=== PATIENT | male | born 1945 | race Caucasian/White ===

== ENCOUNTER 2017-09-19 00:07 | Day surgery (SDC) | payer MEDICARE, OTHER ==
[~2017-09-19 00:07] MED LIST: ACET325 PO; ASCO1ER; ASCO500 PO; Augmentin 875-1 EACH PO; Bactrim Ds Tab1 EACH PO; CALC1.25T PO; CALCIUM; Cefdinir300 MG PO; DIPATR PO; DRON5; Econazole Nitra15 GM TP; FISH1000; FISH1000 PO; GLUCHON; Hydrocodone-Ap1 EA23 PO; METR500 PO; ONDA4 PO; ONDA8 PO; OXYC5; PERIDEX15 ML MM; SILD50TA PO; Selenium100 MCG PO; TIOT18; TOCO400; TOCO400 PO; VALACYCLOVIR1000 MG PO; VITAMIN D310000 UNI1 PO; WARF4; WARF5 PO; XARELTO20 MG PO; ZINC15 PO; ZINC50TA2; [UNRECOGNIZED DRUG - OTHER] PO
== END 2017-09-19 10:18 | disposition home or self-care (01) ==
LOC: WOUND 00:07
DX: Z48.00 Encounter for change or removal of nonsurgical wound dressing (principal); T81.4XXS Infection following a procedure, sequela; C20 Malignant neoplasm of rectum; C78.01 Secondary malignant neoplasm of right lung; Z86.14 Personal history of Methicillin resistant Staphylococcus aureus infection
CPT/HCPCS: 36415; 80053; 85025; G0463

== ENCOUNTER 2017-09-26 20:12 | Inpatient (IN) | payer MEDICARE, OTHER ==
[~2017-09-26] VITALS: Ht 177.8 cm; Wt 74.0 kg
[2017-09-26 21:15] LABS: BASOPHILS ABSOLUTE AUTO 0.01 K/mm3 (0.00-0.23); BASOPHILS PERCENT AUTO 0 % (0-2); EOSINOPHILS ABSOLUTE AUTO 0.02 K/mm3 (0.00-0.68); EOSINOPHILS PERCENT AUTO 0 % (0-6); Hematocrit 33.4 % (37.0-53.0); Hemoglobin 10.9 g/dL (13.5-17.5); IMMATURE GRAN ABSOLUTE AUTO 0.03 K/mm3 (0.00-0.10); IMMATURE GRAN PERCENT AUTO 0 % (0-1); LYMPHOCYTES ABSOLUTE AUTO 1.03 K/mm3 (0.84-5.20); LYMPHOCYTES PERCENT AUTO 9 % (21-46); MONOCYTES ABSOLUTE AUTO 1.07 K/mm3 (0.16-1.47); MONOCYTES PERCENT AUTO 9 % (4-13); Mean Corpuscular HGB 31.4 pg (26.0-34.0); Mean Corpuscular HGB Conc 32.6 g/dL (31.5-36.5); Mean Corpuscular Volume 96 fL (80-100); Mean Platelet Volume 9.5 fL (9.1-12.4); NEUTROPHILS PERCENT AUTO 82 % (41-73); Platelet Count 249 K/mm3 (150-400); RDW Coefficient Variation 14.4 % (11.7-14.2); RDW Standard Deviation 50.4 fL (35.1-46.3); Red Blood Cell Count 3.47 M/mm3 (4.30-5.90); White Blood Cell Count 12.16 K/mm3 (4.00-11.30)
[2017-09-26 21:27] LABS: Anion Gap 13 mmol/L (6-16); Blood Urea Nitrogen 30 mg/dL (8-24); Bun/Creatinine Ratio 40.4 (12.0-20.0); CO2, Blood 19 mmol/L (21-32); Calcium, Blood 9.2 mg/dL (8.5-10.1); Chloride, Blood 104 mmol/L (98-108); Creatinine, Blood 0.74 mg/dL (0.60-1.20); Glomerular Filtration Rate >60 (60-); Glucose, Blood 149 mg/dL (70-99); Potassium, Blood 4.3 mmol/L (3.5-5.5); Sodium, Blood 136 mmol/L (136-145)
[2017-09-26] MEDS ORDERED: OXYC5 (21:38)
[2017-09-26] MEDS ORDERED: FENTANYL1 EAC1 TD (21:39)
[2017-09-27 05:03] LABS: BASOPHILS ABSOLUTE AUTO 0.01 K/mm3 (0.00-0.23); BASOPHILS PERCENT AUTO 0 % (0-2); EOSINOPHILS ABSOLUTE AUTO 0.01 K/mm3 (0.00-0.68); EOSINOPHILS PERCENT AUTO 0 % (0-6); Hematocrit 32.8 % (37.0-53.0); Hemoglobin 10.7 g/dL (13.5-17.5); IMMATURE GRAN ABSOLUTE AUTO 0.06 K/mm3 (0.00-0.10); IMMATURE GRAN PERCENT AUTO 0 % (0-1); LYMPHOCYTES ABSOLUTE AUTO 0.37 K/mm3 (0.84-5.20); LYMPHOCYTES PERCENT AUTO 2 % (21-46); MONOCYTES ABSOLUTE AUTO 0.17 K/mm3 (0.16-1.47); MONOCYTES PERCENT AUTO 1 % (4-13); Mean Corpuscular HGB 32.2 pg (26.0-34.0); Mean Corpuscular HGB Conc 32.6 g/dL (31.5-36.5); Mean Platelet Volume 9.6 fL (9.1-12.4); NEUTROPHILS ABSOLUTE AUTO 20.43 K/mm3 (1.96-9.15); NEUTROPHILS PERCENT AUTO 97 % (41-73); Platelet Count 216 K/mm3 (150-400); RDW Coefficient Variation 14.6 % (11.7-14.2); RDW Standard Deviation 53.2 fL (35.1-46.3); Red Blood Cell Count 3.32 M/mm3 (4.30-5.90); White Blood Cell Count 21.05 K/mm3 (4.00-11.30)
[2017-09-27 05:12] LABS: Mean Corpuscular Volume 99 fL (80-100)
[2017-09-27 05:40] LABS: BAND PERCENT MAN 9 % (0-8); BASOPHILS PERCENT MAN 0 % (0-2); EOSINOPHILS PERCENT MAN 0 % (0-6); LYMPHOCYTES ABSOLUTE MAN 0.42 K/mm3 (0.84-5.20); LYMPHOCYTES PERCENT MAN 2 % (21-46); MONOCYTES PERCENT MAN 0 % (4-13); NEUTROPHILS ABSOLUTE MAN 20.62 K/mm3 (1.96-9.15); SEG NEUTROPHILS PERCENT MAN 89 % (41-73); TOTAL CELLS COUNTED 100
[2017-09-27 06:36] LABS: Albumin, Blood 3.3 g/dL (3.4-5.0); Albumin/Globulin Ratio 0.9 (0.8-1.8); Bilirubin, Total 0.8 mg/dL (0.1-1.0); Bun/Creatinine Ratio 27.4 (12.0-20.0); Calcium, Blood 8.7 mg/dL (8.5-10.1); Creatinine, Blood 1.35 mg/dL (0.60-1.20); Globulin, Blood 3.5 g/dL (2.2-4.0); Potassium, Blood 4.7 mmol/L (3.5-5.5); Total Protein, Blood 6.8 g/dL (6.4-8.2)
[2017-09-27 07:19] LABS: International Normalized Ratio 1.69; Prothrombin Time Results 17.9 Sec (9.7-11.5)
== END 2017-10-02 15:14 | DRG 698 ==
LOC: ER 20:12 → MEDS 09-27 03:02 → ICUE 09-27 03:02 → MEDS 09-27 03:52 → ICUE 09-27 06:15 → ICUW 09-27 14:15 → MEDS 09-28 16:47
PROVIDERS: Emergency Medicine; Internal Medicine
DX: T83.511A Infection and inflammatory reaction due to indwelling urethral catheter, initial encounter (principal); A41.9 Sepsis, unspecified organism; N13.30 Unspecified hydronephrosis; C79.11 Secondary malignant neoplasm of bladder; C19 Malignant neoplasm of rectosigmoid junction; N32.1 Vesicointestinal fistula; E86.0 Dehydration; N13.4 Hydroureter; Z51.5 Encounter for palliative care; Z86.718 Personal history of other venous thrombosis and embolism; Z79.01 Long term (current) use of anticoagulants; Z79.891 Long term (current) use of opiate analgesic; Z87.440 Personal history of urinary (tract) infections; Z91.041 Radiographic dye allergy status; F41.9 Anxiety disorder, unspecified
CPT/HCPCS: 36415; 51798; 74176; 80048; 80053; 83605; 85025; 85610; 85730; 87040; 87077; 87081; 87086; 87186; 96374; 96375; 96376; 99285; J1170; J1642; J1644; J1885; J2060; J2185; J2405; J2543; J3010; J7030; J7060